=== PATIENT | female | born 1950 | race Caucasian/White ===

== ENCOUNTER 2024-10-16 06:25 | Observation (INO) ==
--- NOTE | 2024-09-15 14:34 | PAT Medication Instructions ---
Medication Instructions Date of Service September 15, 2024 Home Medications Medication Instructions Recorded Rito Watson #1 ea 08/07/24 Medical Marijuana 5 mg PO HS cranberry conc-ascorbic acid 30,000 mg PO QAM gabapentin 600 mg tablet 600 mg PO TID lactobacillus combination no.4 3 billion cell capsule (Probiotic) 3,000 mmu cells PO QAM levothyroxine 50 mcg tablet 50 mcg PO QAM methylprednisolone 4 mg tablet 4 mg PO QAM multivitamin 1 tab PO QAM sertraline 100 mg tablet 100 mg PO QAM vitamin B complex 1 cap PO QAM STOP taking 2 weeks before surgery cranberry conc-ascorbic acid 30,000 mg PO QAM DO NOT take the morning of surgery lactobacillus combination no.4 3 billion cell capsule (Probiotic) 3,000 mmu cells PO QAM multivitamin 1 tab PO QAM vitamin B complex 1 cap PO QAM Take morning of surgery With a small sip of water, OTHERWISE NOTHING TO EAT OR DRINK AFTER MIDNIGHT: gabapentin 600 mg tablet 600 mg PO TID levothyroxine 50 mcg tablet 50 mcg PO QAM methylprednisolone 4 mg tablet 4 mg PO QAM sertraline 100 mg tablet 100 mg PO QAM Take evening before surgery Medical Marijuana 5 mg PO HS gabapentin 600 mg tablet 600 mg PO TID Other Notes If you have any questions please call us at [phone] or [phone] or [phone] or [phone]
--- NOTE | 2024-09-21 11:32 | Anesthesiology Consultation ---
Date of Service September 21, 2024 Assessment & Plan (1) Encounter for pre-operative examination: - Patient reports nausea with most analgesics--to anesthesiologist discretion if patient will need any additional treatment pre-op regarding history of nausea with most pain medications. - Outpatient joint assessment: Patient is currently scheduled for inpatient pathway. If re-evaluated and patient/surgeon requests outpatient pathway, patient is not ideal candidate for outpatient joint program from anesthesia standpoint. Chart Review Chart Review: Acceptable Risk for Surgery and Patient seen in Pre Admission Testing Teaching & Discussion Pre-Anesthesia Teaching/Discussion Notes: Instructed NPO after midnight before surgery, except medications with 15 cc of water. Medication instructions provided according to the PAT guidelines. History Surgery Operation Date: 10/16/24 10:40 Proposed Procedures p Left Hip Arthroplasty - Norbert Tracey MD Height/Weight Height: 5 ft 4.5 in Weight: 69.8 kg Allergies Allergy/AdvReac Type Severity Reaction Status Date / Time erythromycin base Allergy Severe Nausea Verified 09/09/24 13:12 venom-honey bee Allergy Severe Hives Verified 09/09/24 13:12 acetaminophen [From Vicodin] AdvReac Severe Nausea, Verified 09/09/24 13:12 abdominal pain codeine AdvReac Severe Abdominal Verified 09/09/24 13:12 Pain, nausea hydrocodone [From Vicodin] AdvReac Severe Nausea, Verified 09/09/24 13:12 abdominal pain Medications Home Medications Medication Instructions Recorded Confirmed Last Taken Wheeled Walker #1 ea 08/07/24 08/07/24 Unknown Medical Marijuana 5 mg PO HS 09/09/24 09/09/24 Unknown cranberry conc-ascorbic acid 30,000 mg PO QAM 09/09/24 09/09/24 Unknown gabapentin 600 mg tablet 600 mg PO TID 09/09/24 09/09/24 Unknown lactobacillus combination no.4 3 3,000 mmu cells PO QAM 09/09/24 09/09/24 Unknown billion cell capsule (Probiotic) levothyroxine 50 mcg tablet 50 mcg PO QAM 09/09/24 09/09/24 Unknown methylprednisolone 4 mg tablet 4 mg PO QAM 09/09/24 09/09/24 Unknown multivitamin 1 tab PO QAM 09/09/24 09/09/24 Unknown sertraline 100 mg tablet 100 mg PO QAM 09/09/24 09/09/24 Unknown vitamin B complex 1 cap PO QAM 09/09/24 09/09/24 Unknown Past Medical History Medical History Anxiety Chronic abdominal pain after hernia repair with mesh Degenerative joint disease Depression History of anesthesia reaction shakiness, extreme cold feeling post op History of blood transfusion (~1970) History of cervical cancer surgical removal History of gastric ulcer many years ago History of kidney cancer surgery only, no chemo or radiation History of removal of cervix but not uterus Hypothyroidism MGUS (monoclonal gammopathy of unknown significance) follows with [facility] Sciatic leg pain left, currently taking methylprednisone Patient denies h/o stroke, seizures, heart attack, heart failure, DM, HTN, blood clots/DVTs or blood transfusions. Exercise / Class Metabolic Activity III < 4 Walking/Shop/Light housework (ambulates with cane, denies chest discomfort or shortness of breath with usual activities) Past Surgical History Surgical History History of colonoscopy History of kidney surgery removal of tumor only History of lumbar surgery bone spurs removed History of umbilical hernia repair Past Anesthesia History No Family Hx of Anesthesia Complications and Other (shakiness, extreme cold feeling post op) History of PONV No Hx of PONV and No Hx of Motion Sickness Social History Smoking Status: Never smoker Do You Dip or Chew Tobacco: No Hx Alcohol Use: Yes alcohol intake frequency: a few times a month Hx Substance Use: No substance use type: does not use Review of Systems Patient denies chest pain, shortness of breath, dyspnea on exertion, snoring, witnessed apneas, reflux, fever, chills, cough, wheezing, or palpitations. Physical Exam Vital Signs Vitals BP 144/87 P 75 TEMP 98.0 SP02 95% on RA RESP 19 Physical Patient resting comfortably in chair in no acute distress, alert and oriented, responding appropriately throughout visit Full cervical extension range of motion without pain TMD 3 finger breadths Mallampati Score 2 Dentition: intact, denies chipped or loose teeth, caps/crowns, implants or bridges Lungs: normal respiratory effort. Good air movement, clear throughout to auscultation, no adventitious breath sounds Cardiac: regular rate and rhythm, no murmurs noted Carotid arteries: negative bruit bilat Lab Results Anesthesia Preop Results Results Anesthesia Widget: WBC 6.25 K/ul (4.8-10.8) 09/21/24 Hgb 12.7 g/dl (12.0-16.0) 09/21/24 Hct 37.9 % (37.0-47.0) 09/21/24 Plt 282 K/uL (130-400) 09/21/24 Na 138 mmol/L (136-145) 09/21/24 K 4.0 mmol/L (3.5-5.1) 09/21/24 Cl 103 mmol/L (98-107) 09/21/24 CO2 29 mmol/L (21-32) 09/21/24 BUN 11 mg/dl (6-23) 09/21/24 Creat 0.58 mg/dl (0.6-1.2) L 09/21/24 Glucose Level 97 mg/dl (70-99(Fasting)) 09/21/24 PT 10.3 Seconds (9.0-12.0) 09/21/24 PTT 29 Seconds (21-31) 09/21/24 INR 0.9 (0.9-1.1) 09/21/24 Blood Type O Positive 09/21/24 Antibody Screen NEGATIVE 09/21/24 Testing Electrocardiogram Date: 09/21/24 NSR, rate 73 bpm Left axis deviation Chest X-Ray Date: 09/21/24 No evidence of acute cardiopulmonary disease, communicable disease or tuberculosis.
--- NOTE | 2024-10-10 07:32 | History & Physical Report ---
Date of Service October 10, 2024 Assessment & Plan (1) Degenerative joint disease of left hip: 73-year-old female with multiple medical comorbidities including renal cell cancer status post nephrectomy along with a GI ulcer issues with advanced left hip arthritis. She is failed conservative measures. Is affecting her quality life and she would like to have her hip fixed. She cannot take NSAIDs due to her GI history as well as her right nephrectomy. Plan: We discussed treatment option she would like to have her hip fixed. Will taken the operating room do left total hip placed. Risk note this procedure explained and she understands. Informed consent was obtained. Will use aspirin for DVT prophylaxis as it is a low dose. She will need some Nexium or Zantac. She has had issues with nausea and will be aggressive as far as nausea treatment with Decadron and Zofran. She is planned to be discharged to home with some home health. (2) History of gastric ulcer: (3) Hypothyroidism: (4) History of kidney cancer: (5) Depression: (6) Anxiety: (7) History of removal of cervix but not uterus: (8) History of cervical cancer: History of Present Illness Chief Complaint: . Left hip and leg pain. Primary Care Provider: Дмитрий Ellington DO . The patient is a 73-year-old female from [facility] who presents for surgical treatment of her left hip. She has a several history increasing left hip pain discomfort describes gotten worse over time. Scribes buttock pain groin pain thigh pain. She has had to use a cane to get around recently. E xtensively worse in the past several months. She cannot take NSAIDs due to some GI problems and an ulcer problem. She become more disabled by her pain. She like to have her hip fixed. Of note, patient has a history of renal cell cancer treated with nephrectomy in the clear of disease. She is limited in NSAID use due to GI issues as well as this nephrectomy issue. Allergies Allergy/AdvReac Type Severity Reaction Status Date / Time erythromycin base Allergy Severe Nausea Verified 09/09/24 13:12 venom-honey bee Allergy Severe Hives Verified 09/09/24 13:12 acetaminophen [From Vicodin] AdvReac Severe Nausea, Verified 09/09/24 13:12 abdominal pain codeine AdvReac Severe Abdominal Verified 09/09/24 13:12 Pain, nausea hydrocodone [From Vicodin] AdvReac Severe Nausea, Verified 09/09/24 13:12 abdominal pain Home Medications Medication Instructions Recorded Confirmed Type Wheeled Walker #1 ea 08/07/24 08/07/24 Rx Medical Marijuana 5 mg PO HS 09/09/24 09/09/24 History cranberry conc-ascorbic acid 30,000 mg PO QAM 09/09/24 09/09/24 History gabapentin 600 mg tablet 600 mg PO TID 09/09/24 09/09/24 History lactobacillus combination no.4 3 3,000 mmu cells PO QAM 09/09/24 09/09/24 History billion cell capsule (Probiotic) levothyroxine 50 mcg tablet 50 mcg PO QAM 09/09/24 09/09/24 History methylprednisolone 4 mg tablet 4 mg PO QAM 09/09/24 09/09/24 History multivitamin 1 tab PO QAM 09/09/24 09/09/24 History sertraline 100 mg tablet 100 mg PO QAM 09/09/24 09/09/24 History vitamin B complex 1 cap PO QAM 09/09/24 09/09/24 History Past Med/Surg History Problem List Encounter for pre-operative examination Degenerative joint disease of left hip Medical History History of blood transfusion (~1970) MGUS (monoclonal gammopathy of unknown significance) follows with [facility] History of anesthesia reaction shakiness, extreme cold feeling post op History of removal of cervix but not uterus History of cervical cancer surgical removal Sciatic leg pain left, currently taking methylprednisone History of gastric ulcer many years ago Chronic abdominal pain after hernia repair with mesh Hypothyroidism History of kidney cancer surgery only, no chemo or radiation Depression Anxiety Degenerative joint disease Surgical History History of lumbar surgery bone spurs removed History of colonoscopy History of umbilical hernia repair History of kidney surgery removal of tumor only Social History Smoking Status: Never smoker Second Hand Exposure: No; Do You Dip or Chew Tobacco: No; Hx Alcohol Use: Yes Hx Substance Use: No Preferred Language: Pashto Wire Bender Required: No Beliefs That Will Affect Care: None Current Living Situation: Alone Feels Safe at Home: Yes Assistive Devices: Cane and Glasses Review of Systems All systems reviewed & are unremarkable except as noted in HPI & below. Physical Exam . Physical examination was a pleasant healthy-appearing 73-year-old female. Emanation left hip and leg reveal patient walks with use of a cane. Leg lengths appear pretty equal. She does have a bit of a limp. She got stiffness with any type of hip motion. Internal rotation in neutral at best. This recreates pain. Negative straight leg raise. No knee effusion. She is neurologically intact. Constitutional WD/WN, vitals as above Neck trachea midline, no thyromegaly Respiratory normal respiratory effort, lungs clear to auscultation Cardiovascular RRR, no murmur, no edema Gastrointestinal (Abdomen) normal bowel sounds, soft, nontender, no hepatosplenomegaly Results & Data Results & Data Laboratory Results . Diagnostic Findings . X-rays of the left hip were reviewed. Shows advanced hip arthritis. She got near complete loss of the joint space. She got osteophytes laterally and pincer type impingement. Diffuse osteoporosis. PG Care Time/CCT Total # of Minutes Spent Total Time Spent with Patient: Total time spent is greater than 50% in coordination of care (as documented) at patient's floor/unit and/or counseling patient: Coding Level of Care Code None Diagnoses Degenerative joint disease of left hip M16.12 History of gastric ulcer Z87.11 Hypothyroidism E03.9 History of kidney cancer Z85.528 Depression F32.A Anxiety F41.9 History of removal of cervix but not uterus Z90.712 History of cervical cancer Z85.41
[2024-10-16] MEDS ORDERED: BUPIVACAINE 0.5 % 5 MG/1 ML PF 10ML VIAL ONE (06:32)
--- NOTE | 2024-10-16 06:53 | History & Physical Bridge Note ---
Date of Service October 16, 2024 History & Physical Bridge Note I have examined the patient, reviewed the History & Physical and in the interval since the performance of the History & Physical I have noted the following changes of clinical significance: no changes noted
[2024-10-16] MEDS: LR 500ML BOLUS, THEN 15ML/HR IV SCH (07:15)
[2024-10-16] MEDS: dexAMETHasone**PF** 10 MG/ML VIAL IV SCH (07:23)
[2024-10-16] MEDS: FAMOTIDINE 20 MG TAB PO SCH (07:24)
[2024-10-16] MEDS: METOCLOPRAMIDE HCL 10 MG TABLET PO SCH (07:24)
[2024-10-16] MEDS: CeleBREX 200 MG CAP PO SCH (07:24)
[2024-10-16] MEDS: ACETAMINOPHEN 500 MG TAB PO SCH ×2 (07:24→17:02)
[2024-10-16] MEDS: LR 60ML/HR IV SCH (07:25)
[2024-10-16] MEDS ORDERED: fentaNYL citrate PF 100 MCG/2 ML VIAL IV PRN (07:43)
[2024-10-16] MEDS ORDERED: ONDANSETRON INJ 2 MG/ML 2 ML VIAL IV PRN (07:43)
[2024-10-16] MEDS ORDERED: ATROPINE SULFATE 0.1 MG/ML 10ML SYR IV PRN (07:43)
[2024-10-16] MEDS ORDERED: ePHEDrine sulfate 50 MG/ML AMP IV PRN (07:43)
[2024-10-16] MEDS ORDERED: MIDAZOLAM HCL 1 MG/ML 2ML VIAL ONE (07:50)
[2024-10-16] MEDS ORDERED: PROPOFOL IV EMULSION 10 MG/ML 20 ML VIAL IV ONE ×3 (07:50→09:51)
[2024-10-16] MEDS: TRANEXAMIC ACID 1,000 MG **IV Pre-op IV SCH (08:56)
[2024-10-16] MEDS: ceFAZolin 2000MG 2,000 MG/15 ML SYR IV SCH (09:25)
[2024-10-16] MEDS ORDERED: ONDANSETRON INJ 2 MG/ML 2 ML VIAL ONE (09:43)
[2024-10-16] MEDS ORDERED: ePHEDrine sulfate 50 MG/ML AMP ONE (10:06)
[2024-10-16] MEDS: BUPIVACAINE/EPINEPHRINE 0.5% MPF 1:200,000 30 ML VIAL ONE (10:10)
--- NOTE | 2024-10-16 11:32 | Operative Report ---
PG Post Operative Report Pre & Post Diagnosis Operation Date: 10/16/24 08:50 Pre-Op Diagnosis: Left Hip Osteoarthritis Post-Op Diagnosis: Left Hip Osteoarthritis I identified the patient and participated in the time-out.: Yes Procedure Operation Date: 10/16/24 08:50 Actual Procedures p Left Total Hip Arthroplasty, Cemented(Left) - Norbert Tracey MD Surgeon Norbert Tracey MD Tool And Die Manager Cuca Foote PA-C Estimated Blood Loss 100 Findings Consistent with Post-Op Diagnosis Specimens Left femoral head sent for pathology. Anesthesia Type Spinal MAC Complications none Disposition Accompanied Patient To Recovery: No Indications The patient is a 74-year-old female whose had a recent history of fairly rapidly progressing left hip pain discomfort is gotten worse over time. She failed conservative measures. X-rays show advanced hip arthritis which has progressed over the past 6 months. She failed conservative measures and elected proceed with total hip arthroplasty. Description of Procedure Operative implants consist of: 1. Biomet G7 size 52 mm acetabular shell. 2. 6.5 cancellous acetabular screws 125 mm length and 1 of 35 mm length. 3. Bunn hole aviation electrical technician. 4. Highly cross-linked polyethylene liner with a 52 mm outer diameter and 36 mm inner diameter. 5. DePuy Prentiss size 3 high offset cemented femoral stem. 6. +8.5/36 mm ceramic articular ball. The patient was taken the op room, identified, placed on the operating table in the supine position. All conductors were appropriately padded. IV antibiotics fibra anesthesia team. A spinal anesthetic been implemented holding area. Farah catheter was placed in sterile fashion. The patient was then placed in the right lateral decubitus position. An axillary roll was placed. Distal Birkett position was used for positioning. The left hip and leg were then prepped and draped in usual sterile fashion. A posterior lateral approach to the left hip was then performed to a curvilinear incision centered over the greater trochanter. Sharp dissection was got through subcutaneous tissue dental of the IT band gluteal fascia of the IT band gluteal fascia incised longitudinally in line with skin incision. The underlying greater bursa was excised. The piriformis and external rotators along with the posterior hip joint capsule then released from the posterior aspect of the hip as a single layer. The hip was internally rotated and dislocated. A femoral neck osteotomy cut was made with Final Cut about 5 mm above the lesser trochanter. The femoral head was removed and sent for pathology. The femur was retracted anteriorly. Attention drawn the acetabulum. The acetabulum labrum was excised. The pulmonary fat was excised. Sequential reaming the acetabulum was then performed again with a size 43 and progressing up to a 51. I reamed a little bit with a 52 reamer and then placed a 52 mm Biomet G7 acetabular shell in about 40 degrees lateral opening and 20 degrees of anteversion. It was fixed with two 6.5 screws. Trial liner was placed. Attention drawn the femur. The proximal femur was entered with a D-Sight cutter followed by the canal finder. I then broached beginning with this Karaya broaches. As I approached up I really was not getting any fit. Her cancellous bone was fairly poor and therefore we elected to place this cemented Prentiss stem. The Prentiss broaches were then used and I broached up to a size 3. The calcar reamer was used smoothed off the calcar. Then trialed the hip. The hip was fully stable with all neck lengths but the +5 was still a little bit lax. We elected to place a 8.5 head to maximize her soft tissue tension and stability. Leg lengths appear equal. We elect to place these implants. Nupathe all trial implants were removed. An apex hole aviation electrical technician was placed. Highly cross-linked polyethylene liner was placed. A cement restrictor was placed distally. A double batch Palacos G cement was mixed. This is injected into the canal. A size 3 high offset cemented stem was placed. All extraneous cement was removed. Once the cement hardened a +8.5/36 mm ceramic articular ball was placed and the hip was located. Was found to be fully stable. Attention drawn toward closing. The wound was irrigated close's pulsatile lavage solution. I did inject locally with 60 cc of half percent Marcaine with epinephrine. The posterior capsule was then repaired to the posterior aspect of the hip to holes in the trochanter with #2 Tycron suture. The IT band and gluteal fascia then closed in 1 PDS suture in a running fashion the subcutaneous tissues then closed in 2 layers the deep layer #1 Vicryl suture and subcutaneous tissue with 2-0 Dexon suture in a buried interrupted fashion for the skin was closed skin jama. Leg was then cleaned and dried and a sterile dressing was Xeroform, 4 fours, sterile ABD bandages and foam tape were applied. The patient was then transferred to the recovery room in stable condition. The patient tolerated procedure well and there are no complications. Cuca Foote, my physician pastry assistant, was present for the entire procedure. Her assistance was required for proper patient positioning, prepping and draping, surgical exposure, retraction, perform the technical details of the operation, placement of the implants, closure of the incision site and placement of postoperative sterile bandage. I attest to the content of the Intraoperative Record and any orders documented therein. Any exceptions are noted below.
--- NOTE | 2024-10-16 11:49 | XRay Report ---
XR hip 1V LT w pelvis CLINICAL HISTORY: IN PACU - Post Surgical COMPARISON: 08/04/2024 FINDINGS: Left hip prosthesis shows no hardware complication. There is expected soft tissue gas. Ski n jama are present. IMPRESSION: Unremarkable postoperative exam. ACT 112: Negative or not required by law. Electronically signed by: Magen Silvestre M.D. 10/16/2024 11:47 AM
[2024-10-16] MEDS: MEPERIDINE HCL 25 MG/ML CARP/VIAL IV PRN (12:12)
--- NOTE | 2024-10-16 12:34 | Anesthesiology Progress Note ---
Date of Service October 16, 2024 Anesthesia Post Procedure Vital Signs Vital Signs: Temp Pulse Pulse Resp BP Pulse Ox O2 Del Method 10/16/24 12:30 77 15 132/66 99 Room Air 10/16/24 12:20 70 17 145/58 H 99 Nasal Cannula 10/16/24 12:10 36.6 C 70 16 147/67 H 100 Nasal Cannula 10/16/24 12:00 76 22 148/65 H 92 Room Air 10/16/24 11:50 78 20 139/63 92 Room Air 10/16/24 11:40 80 20 141/60 H 92 Room Air 10/16/24 11:30 85 23 120/66 93 Room Air 10/16/24 11:23 36.0 C L 85 20 142/66 H 94 Room Air 10/16/24 07:12 36.8 C 76 18 156/82 H 97 Room Air O2 Flow Rate 10/16/24 12:30 0 10/16/24 12:20 2 10/16/24 12:10 2 10/16/24 12:00 10/16/24 11:50 10/16/24 11:40 10/16/24 11:30 10/16/24 11:23 10/16/24 07:12 Transfer of Care Handoff Completed per policy Notes Mental Status: alert / awake / arousable Patient Amnestic to Procedure: Yes Nausea / Vomiting: adequately controlled Pain: adequately controlled Airway Patency, RR, SpO2: stable & adequate BP & HR: stable & adequate Hydration State: stable & adequate Neuraxial Anesthesia: was administered and sensory block is resolving Anesthetic Complications: no major complications apparent and Pt Satisfied with anesthetic care
[2024-10-16] MEDS ORDERED: bisacodyL 10 MG SUPP PR PRN (13:07)
[2024-10-16] MEDS ORDERED: MAGNESIUM HYDROXIDE SUSP 30 ML UDC PO PRN (13:07)
[2024-10-16] MEDS ORDERED: NALOXONE HCL 0.4 MG/1 ML VIAL/CARP IV PRN (13:07)
[2024-10-16] MEDS ORDERED: NO NSAIDS SCH (13:07)
[2024-10-16] MEDS ORDERED: ALUMINUM/MAGNESIUM SUSP 30 ML UDC PO PRN (13:07)
[2024-10-16] MEDS: MEPERIDINE HCL 25 MG/ML CARP/VIAL ONE (13:29)
[2024-10-16] MEDS ORDERED: ACETAMINOPHEN 500 MG TAB PO SCH (14:00)
[2024-10-16] MEDS: HYDROmorphone INJ 0.5 MG/0.5 ML SYR IV PRN (14:38)
[2024-10-16] MEDS: ONDANSETRON INJ 2 MG/ML 2 ML VIAL IV PRN (14:59)
[2024-10-16] MEDS: METOCLOPRAMIDE HCL INJ 5 MG/ML 2 ML VIAL IV PRN (15:38)
[2024-10-16] MEDS: GABAPENTIN 600 MG TAB PO SCH (17:02)
[2024-10-16] MEDS: ceFAZolin 1000MG 1,000 MG/7.5 ML SYR IV SCH (17:08)
[2024-10-16] MEDS: ASCORBIC ACID 500 MG TAB PO SCH (17:08)
[2024-10-16] MEDS: MEDICAL MARIJUANA PO SCH (20:29)
[2024-10-16] MEDS: DOCUSATE SODIUM 100 MG CAP PO SCH (20:29)
[2024-10-16] MEDS: SENNA 8.6 MG TAB PO SCH (20:29)
[2024-10-16] MEDS: ASPIRIN 81 MG ECTAB PO SCH (20:29)
[2024-10-16] MEDS ORDERED: SENNA 8.6 MG TAB PO SCH (21:00)
[2024-10-17] MEDS: LEVOTHYROXINE SODIUM 50 MCG TABLET PO SCH (05:36)
[2024-10-17] MEDS: traMADol HCL 50 MG TABLET PO PRN (05:52)
[2024-10-17 06:23] LABS: Basophils # (auto) 0.04 K/uL (0.00-0.20); Basophils % (auto) 0.6 %; Eosinophils # (auto) 0.06 K/uL (0.00-0.50); Eosinophils % (auto) 0.8 %; Hematocrit (blood only) 31.9 % (37.0-47.0); Hemoglobin 10.5 g/dl (12.0-16.0); Immature Granulocytes # (auto) 0.03 K/uL (0.01-0.20); Immature Granulocytes % (auto) 0.4 %; Lymphocytes # (auto) 1.88 K/uL (1.20-3.40); Lymphocytes % (auto) 26.6 %; Mean Corpuscular Hemoglobin 31.3 pg (25.0-34.0); Mean Corpuscular Hgb Conc 32.9 g/dL (32.0-36.0); Mean Corpuscular Volume 95.2 fL (80.0-100.0); Mean Platelet Volume 10.6 fL (9.4-12.4); Monocytes # (auto) 0.63 K/uL (0.11-0.59); Monocytes % (auto) 8.9 %; Neutrophils # (auto) 4.43 K/uL (1.40-6.50); Neutrophils % (auto) 62.7 %; Platelet Count 219 K/uL (130-400); RDW Coefficient of Variation 12.8 % (11.5-14.5); RDW Standard Deviation 44.9 fL (36.4-46.3); Red Blood Count 3.35 M/uL (4.20-5.40); White Blood Count 7.07 K/ul (4.8-10.8)
[2024-10-17 06:50] LABS: Calcium 8.7 mg/dl (8.6-10.3); Creatinine Clr Calc Pharmacy 81.9 ml/min; Potassium 3.8 mmol/L (3.5-5.1)
--- NOTE | 2024-10-17 08:09 | Orthopedic Progress Note ---
Date of Service October 17, 2024 Assessment & Plan (1) Status post left hip replacement: Plan: 74-year-old female postop day 1 from a left hip replacement doing pretty well. Pains controlled. Some slight stomach discomfort but appears fairly mild. Her hips located. She is neurologically intact. Plan: 1. DVT prophylaxis including thigh-high teds, SCDs, aspirin twice a day. 2. PT/OT. Weight-bear as top. Left total hip protocol. 3. Pain control. Doing okay with current pain regimen. 4. Disposition. Plan is to discharge to home with some home health. Will see how she does in therapy today. Admission and Anticipated Discharge Date Admission Date: October 16, 2024 Subjective 74-year-old female postop day 1 from left hip replacement. She is doing okay. Have a little bit of stomach discomfort. No nausea. No chest pain or shortness of breath. Not feeling dizzy or lightheaded. Physical Exam Physical Exam: Physical nation was a pleasant middle-age female. She is sitting in bed looks pretty comfortable this morning. Examination of the hip reveals dressing clean dry intact. Leg lengths are equal. She can dorsiflex and plantarflex her foot appropriately. She is neurologically intact. Respiratory: normal respiratory effort, lungs clear to auscultation Cardiovascular: RRR, no murmur, no edema Gastrointestinal (Abdomen): normal bowel sounds, soft, nontender, no hepatosplenomegaly Results & Data Vital Signs (Past 12 Hours) Vital Signs Temp Pulse Resp BP Pulse Ox O2 Del Method 10/17/24 04:02 37 C 73 16 108/64 95 Room Air 10/17/24 00:20 36.8 C 74 16 119/68 96 Room Air Laboratory Results Hemoglobin 10.5 hematocrit 31.9. Electrolytes are stable.
[2024-10-17] MEDS: dexAMETHasone 10 MG in SYRINGE 0 ML IV SCH (08:42)
[2024-10-17] MEDS: methylPREDNISolone 4 MG TAB PO SCH (08:43)
[2024-10-17] MEDS: FAMOTIDINE 20 MG TAB PO SCH (08:43)
[2024-10-17] MEDS: VITAMIN B COMPLEX TAB PO SCH (08:43)
[2024-10-17] MEDS: ADVANCED PROBIOTIC 625 MG CAPSULE PO SCH (08:43)
[2024-10-17] MEDS: MULTIVITAMIN TAB PO SCH (08:44)
[2024-10-17] MEDS: SERTRALINE HCL 100 MG TABLET PO SCH (08:44)
[2024-10-17] MEDS ORDERED: NON-FORMULARY MEDICATION (Multivitamin Tablet) PO SCH (09:00)
[2024-10-17] MEDS ORDERED: CRANBERRY ASCORBIC ACID PO SCH (09:00)
--- NOTE | 2024-10-18 09:12 | Orthopedic Progress Note ---
Date of Service October 18, 2024 Assessment & Plan (1) Status post left hip replacement: Plan: 74-year-old female postop to a 2 from left hybrid total hip replacement doing pretty well. Pain seems to be controlled. Hips located. She is neurologically intact. Plan: 1. DVT prophylaxis including thigh-high teds, SCDs, aspirin twice a day. 2. PT/OT. Weight-bear as top. Left total hip protocol. 3. Pain control. Doing okay with current pain regimen. 4. Disposition. Plan is to discharge to home with some home health after therapy today. Admission and Anticipated Discharge Date Admission Date: October 16, 2024 Subjective 74-year-old female postop day 2 from a left hybrid total hip replacement. She is doing bit better this morning. Pains controlled. As she mobilized pretty well yesterday. No chest pain or shortness of breath. Not feeling dizzy or lightheaded. Physical Exam Physical Exam: Physical nation was a pleasant middle-aged female. Lying bed looks comfortable. Examination hip reveals the dressing be clean dry and intact. Leg lengths are equal. Thigh is soft and supple. She is neurologically intact. Results & Data Vital Signs (Past 12 Hours) Vital Signs Temp Pulse Resp BP Pulse Ox O2 Del Method 10/18/24 06:52 36.7 C 69 16 109/68 94 Room Air
--- NOTE | 2024-10-26 09:06 | Discharge Summary ---
Date of Service October 26, 2024 Admission HPI (Per Admitting) . The patient is a 73-year-old female from [facility] who presents for surgical treatment of her left hip. She has a several history increasing left hip pain discomfort describes gotten worse over time. Scribes buttock pain groin pain thigh pain. She has had to use a cane to get around recently. Extensively worse in the past several months. She cannot take NSAIDs due to some GI problems and an ulcer problem. She become more disabled by her pain. She like to have her hip fixed. Of note, patient has a history of renal cell cancer treated with nephrectomy in the clear of disease. She is limited in NSAID use due to GI issues as well as this nephrectomy issue. Admission Exam (Per Admitting) . Physical examination was a pleasant healthy-appearing 73-year-old female. Emanation left hip and leg reveal patient walks with use of a cane. Leg lengths appear pretty equal. She does have a bit of a limp. She got stiffness with any type of hip motion. Internal rotation in neutral at best. This recreates pain. Negative straight leg raise. No knee effusion. She is neurologically intact. Principal Diagnosis Same as "Discharge Diagnosis" noted below under Discharge Instructions. Discharge Data Procedures Performed Operation Date: 10/16/24 08:50 Actual Procedures p Left Total Hip Arthroplasty, Cemented(Left) - Norbert Tracey MD Hospital Course (1) Status post left hip replacement: This is a 74 year old patient admitted on 10/16/24 and underwent total hip arthroplasty. She tolerated the procedure well and there were no complications. Transferred to the PACU post op and later to the orthopedic floor for further care. She was given ancef for antibiotic prophylaxis. She was also given SENIA stockings, SCDs, and aspirin for DVT prophylaxis. Hemoglobin, hematocrit, and vital signs were monitored during her hospital stay and remained stable. Did not require any blood transfusions. There were no complications during her hospital stay. By post op day #2 the patient was tolerating a regular diet, pain was reasonably controlled with oral pain medicine, and she was participating in physical therapy. On post op day #2 the patient was discharged home and set up with home health care. She was given printed discharge instructions including prescriptions for extra strength tylenol, aspirin, zantac, zofran, senokot, and tramadol. Continue hip precautions. Continue physical therapy, weight bearing as tolerated. Continue SENIA stockings. Follow up approximately 2 weeks post op or sooner if there are problems or concerns. Discharge Plan Discharge Items Patient Disposition: Home - Home Health Services Reason For Visit: Left Hip Osteoarthritis Discharge Diagnosis: Left Hip Replacement Activity: Per Instructions section Activity Comment: Follow/Obey hip precautions at all times. Weightbearing: Full weightbearing Weightbearing Comment: Weightbear as tolerated obeying hip precautions at all times. Non-emergency contact: Surgeon Call non-emergency contact if: you have any medication questions Follow-up/Referrals: Дмитрий Ellington DO [Primary Care Provider] - Diet: Regular Addtl Attending Provider Instructions: ACTIVITY RECOMMENDATIONS: Diet: * You may resume previous diet. Physical Therapy: * Aggressive physical therapy is not usually needed. You will learn to take care of yourself safely and walk. * Follow the "Hip Precautions Instructions." * In some cases, the psychologist social at the hospital will arrange to have a therapist come to your house for the first couple of weeks to help you learn these skills. * You need to practice on your own or with the help of a family member as needed. * When you learn these skills, most of the therapy can be done on your own. Home Exercise: * You were shown a series of exercises in the hospital. Do these exercises three to four times each day including the exercises you were shown in physical therapy. Walking: * Get up and walk several times each day. For the first four weeks, try not to stand or walk for more than one hour at a time. If you do stand or walk for more than one hour, you will not hurt anything, but your leg will likely swell. * As you feel comfortable, you may change from the walker or crutches to a cane and then to independent walking. MEDICATIONS: New Medicine: * You will likely be taking one or more of these medicines: 1. Tramadol - Take, as directed, when you need it, every six hours to control your pain. 2. Aspirin - Thins your blood to lessen the chance of forming a blood clot. * The most common side effects of pain medicine and iron are nausea and constipation. If nausea or constipation is too much of a problem or if you have any questions about your new medicines or doses, call [facility] at . We will try to help you manage these issues. "VERY IMPORTANT TO READ AND REVIEW" Pain: * The immediate post-operative period after hip replacement surgery is often quite painful. * You are given a prescription for pain medicine. You should take it, as directed, when you need it, especially before physical therapy and before going to bed. Pain that interferes with sleep is very common and can last several months. * You will likely need pain medicine for the first two to four weeks. It will not stop all of the pain. The pain will lessen and as you feel better, you may change to milder pain medicine such as Tylenol. * The most common side effects of pain medicine are nausea and constipation, so don't take more than you need. SPECIAL CARE INSTRUCTIONS: TEDs/Elastic Stockings: * The white elastic stockings help limit swelling and prevent blood clots from forming in your legs. The more you wear them, the more they work. * Wear them for six weeks. Incision Site Care: * Remove dressing postoperative day 2 and then shower. Keep direct shower pressure off the incision site. * After showering, cover ramsey with dry gauze and change daily or more frequently if the dressing is getting saturated with drainage. * May completely stop using bandage if wound is dry and no drainage * Ramsey are removed between 2 and 3 weeks post-op. If your follow-up appointment is made before 2 weeks, please have your appointment re- scheduled. It is too early to remove the ramsey. Prevention of Infection: * Take antibiotics one hour before any dental cleaning, dental work, urological procedure, gastrointestinal procedure or any invasive surgery in order to prevent your new joint from getting infected. * You may get the antibiotics from the doctor performing the procedure or you may call our office at before and we will call in a prescription to the pharmacy of your choice. Things to Watch For: * Drainage from the incision site that occurs more than one week after your surgery. * Severely increased leg pain or swelling. * Increased redness at the incision site. * Fever above 102 degrees Fahrenheit. * Unusual chest pain or shortness of breath. * Unusual pain or burning with urination. Call [facility] at with any of the above problems or if you have any questions about your medicines or recovery. FOLLOW UP VISIT: Make an appointment to see your doctor for approximately two weeks after surgery for a progress check and staple removal by calling the office at . Pending Studies at Discharge: No Stand-Alone Forms: [employer] [facility] [employer], Smoking Cessation Medications and DC Order Prescriptions: Continued tramadol 50 mg tablet 50 - 100 mg PO Q6 PRN (Reason: pain) Qty: 40 0RF Rx Instructions: Take as needed for pain ondansetron 4 mg tablet,disintegrating 4 mg PO Q8 PRN (Reason: nausea) Qty: 20 1RF Rx Instructions: Take as needed for nausea sennosides [Senokot] 8.6 mg tablet 8.6 mg PO BID 14 Days Qty: 28 0RF Rx Instructions: Take two times a day to prevent/treat constipation acetaminophen [Tylenol Extra Strength] 500 mg tablet 1,000 mg PO TID 30 Days Qty: 180 0RF Rx Instructions: Take 3 times per day to lessen pain. aspirin [Celso Low Dose Aspirin] 81 mg tablet,delayed release (DR/EC) 81 mg PO BID 45 Days Qty: 90 0RF Rx Instructions: Take to prevent blood clots. famotidine [Zantac-360 (famotidine)] 20 mg tablet 20 mg PO DAILY Qty: 30 2RF (DME) [place] [facility] [place] .MEDSUPPLY Qty: 1 0RF Rx Instructions: As directed multivitamin Tablet 1 tab PO QAM gabapentin 600 mg tablet 600 mg PO TID sertraline 100 mg tablet 100 mg PO QAM methylprednisolone 4 mg Tablet 4 mg PO QAM levothyroxine 50 mcg tablet 50 mcg PO QAM vitamin B complex Capsule 1 cap PO QAM Probiotic 3 billion cell Capsule 3,000 mmu cells PO QAM Rx Instructions: administer with a meal cranberry conc-ascorbic acid 30,000 mg PO QAM Medical Marijuana 5 mg PO HS Krames/Other Patient Handouts: DVT Post Op Prevention Admission Data Admit Date/Time: 10/16/24 11:23 Attending Provider: Norbert Appiah Admit Provider: Norbert Appiah Primary Care Provider: Дмитрий Ellington Other Providers: Norbert Tracey Other Interventions: Discharge Summary Assessment (RN) Last Done: 10/18/24 11:39
== END 2024-10-18 12:09 | disposition home health service (06) | DRG 470 ==
LOC: ASU 06:25 → 3W 09:40 → INTOOBSV 11:23
DX: F41.9 Anxiety disorder, unspecified; Z79.890 Hormone replacement therapy; Z90.5 Acquired absence of kidney; E03.9 Hypothyroidism, unspecified; F32.A Depression, unspecified; K25.9 Gastric ulcer, unspecified as acute or chronic, without hemorrhage or perforation; Z90.712 Acquired absence of cervix with remaining uterus; Z88.1 Allergy status to other antibiotic agents; Z88.5 Allergy status to narcotic agent; Z79.899 Other long term (current) drug therapy; Z85.528 Personal history of other malignant neoplasm of kidney; M16.12 Unilateral primary osteoarthritis, left hip